=== PATIENT | male | born 1995 | race Hispanic/Latino ===

== ENCOUNTER 2022-05-14 05:29 | Emergency (ER) | payer MEDICAID ==
[~2022-05-14] VITALS: Ht 175.3 cm; Wt 59.0 kg
[2022-05-14] MEDS ORDERED: 0.9%NACL 1000ML 1,000 ML IV ONE ×2 (06:00→07:30)
[2022-05-14] MEDS ORDERED: ONDANSETRON 4MG INJ IVP ONE (06:00)
[2022-05-14] MEDS ORDERED: HALOPERIDOL INJ 5 MG/ML VIAL ONE (06:19)
[2022-05-14 06:26] LABS: BASOPHILS % (AUTO) 0.2 % (0.0-5.0); EOSINOPHILS % (AUTO) 0.1 % (0.0-8.0); HEMATOCRIT 47.7 % (42-54); LYMPHOCYTES % (AUTO) 16.2 % (21.0-51.0); MEAN CORPUSCULAR HEMOGLOBIN 30.4 pg (27.0-33.0); MEAN CORPUSCULAR HGB CONC 34.2 g/dL (32.0-36.0); MEAN CORPUSCULAR VOLUME 88.8 fL (79-99); MONOCYTES % (AUTO) 3.1 % (3.0-13.0); PLATELET COUNT (AUTO) 184 K/uL (130-400); RED BLOOD CELL COUNT(AUTO) 5.37 MIL/uL (4.50-6.20); RED CELL DISTRIBUTION WIDTH 13.1 % (11.0-15.5); WHITE BLOOD COUNT (AUTO) 14.9 K/uL (4.8-10.8)
[2022-05-14 06:28] LABS: CARBON DIOXIDE 26 mmol/L (21-32); CHLORIDE 105 mmol/L (101-111); CREATININE 0.9 mg/dL (0.5-1.5); GLOMERULAR FILTR. RATE CALC 121 mL/min (>90); GLUCOSE,RANDOM 99 mg/dL (70-105); SODIUM SERUM 143 mmol/L (136-145); UREA NITROGEN, BLOOD 14 mg/dL (7-18)
[2022-05-14 06:32] LABS: ALANINE AMINOTRANSFERASE 19 U/L (12-78); ALBUMIN 4.9 g/dL (3.5-5.0); ASPARTATE AMINOTRANSFERASE 22 U/L (10-37); CREATINE KINASE, TOTAL 332 U/L (21-232); LIPASE 566 U/L (114-286); TOTAL PROTEIN, SERUM 8.5 g/dL (6.0-8.3)
[2022-05-14 06:33] LABS: ACETAMINOPHEN < 1 mcg/mL (10-29); SALICYLATE < 2.8 mg/dL (2.8-20.0)
[2022-05-14] MEDS ORDERED: 0.9%NACL 1000ML 1,000 ML IV SCH (06:52)
[2022-05-14] MEDS ORDERED: HALOPERIDOL INJ 5 MG/ML VIAL IV SCH (06:53)
[2022-05-14 07:02] LABS: APPEARANCE,URINE CLEAR (CLEAR); BILIRUBIN,URINE NEGATIVE (NEGATIVE); COLOR,URINE LIGHT-YELLOW (YELLOW); GLUCOSE, URINE (UA) NEGATIVE (NEGATIVE); KETONES,URINE NEGATIVE (NEGATIVE); LEUKOCYTE ESTERASE ,URINE NEGATIVE Leu/uL (NEGATIVE); NITRATE,URINE NEGATIVE (NEGATIVE); OCCULT BLOOD,URINE NEGATIVE (NEGATIVE); PROTEIN,URINE NEGATIVE (NEGATIVE); UROBILINOGEN,URINE 0.2 mg/dL (0.2-1.0)
[2022-05-14 07:06] LABS: AMPHET/METH SCREEN,URINE NEGATIVE (NEGATIVE); BARBITURATE SCREEN, URINE NEGATIVE (NEGATIVE); BENZODIAZEPINES SCREEN,URINE POSITIVE (NEGATIVE); CANNABINOID SCREEN,URINE POSITIVE (NEGATIVE); COCAINE SCREEN,URINE NEGATIVE (NEGATIVE); OPIATE SCREEN,URINE NEGATIVE (NEGATIVE); PHENCYCLIDINE SCREEN,URINE NEGATIVE (NEGATIVE)
[2022-05-14] MEDS ORDERED: IOHEXOL 350 MG/ML 100ML INFUS..BTL IV ONE (07:09)
[2022-05-14 07:13] LABS: INR 1.15 (0.85-1.15); PROTHROMBIN TIME 12.4 SEC (9.6-11.6)
[2022-05-14 07:14] LABS: PARTIAL THROMBOPLASTIN TIME 26.2 SEC (26.3-35.5)
[2022-05-14] MEDS ORDERED: FAMO20TA8 PO (08:48)
[2022-05-14 08:56] VITALS: BP 117/67
== END 2022-05-14 09:00 | disposition home or self-care (01) ==
LOC: EDH 05:29
DX: R10.9 Unspecified abdominal pain (principal); K29.70 Gastritis, unspecified, without bleeding; F19.10 Other psychoactive substance abuse, uncomplicated; F41.9 Anxiety disorder, unspecified
CPT/HCPCS: 99285; 74177; 96374; 96361; 82550; 80053; 80305; 83690 ×2; 85025; 85610; 85730; 36415; 93005; 81003; G0481; J7030; J1630; J2405; Q9967

== ENCOUNTER 2023-06-06 00:30 | Emergency (ER) | payer MEDICAID ==
[~2023-06-06] VITALS: Ht 172.7 cm; Wt 61.2 kg
[~2023-06-06 00:30] MED LIST: FAMO20TA8 PO
[2023-06-06 01:02] LABS: BASOPHILS # (AUTO) 0.04 K/uL (0.00-0.20); BASOPHILS % (AUTO) 0.4 % (0.0-5.0); EOSINOPHILS # (AUTO) 0.11 K/uL (0.00-0.70); EOSINOPHILS % (AUTO) 1.1 % (0.0-8.0); HEMATOCRIT 39.6 % (42-54); IMMATURE GRANULOCYTE ABSOLUTE 0.03 K/uL (0-1); LYMPHOCYTES # (AUTO) 3.8 K/uL (1.0-4.8); LYMPHOCYTES % (AUTO) 37.1 % (21.0-51.0); MEAN CORPUSCULAR HGB CONC 35.4 g/dL (32.0-36.0); MEAN CORPUSCULAR VOLUME 87.8 fL (79-99); MONOCYTES # (AUTO) 0.8 K/uL (0.1-1.0); MONOCYTES % (AUTO) 7.5 % (3.0-13.0); NEUTROPHILS # (AUTO) 5.5 K/uL (1.8-7.7); NEUTROPHILS % (AUTO) 53.6 % (40.0-77.0); PLATELET COUNT (AUTO) 246 K/uL (130-400); RED BLOOD CELL COUNT(AUTO) 4.51 MIL/uL (4.50-6.20); RED CELL DISTRIBUTION WIDTH 13.8 % (11.0-15.5); WHITE BLOOD COUNT (AUTO) 10.2 K/uL (4.8-10.8)
[2023-06-06 01:10] LABS: CREATININE 0.9 mg/dL (0.5-1.3); POTASSIUM 3.6 mmol/L (3.5-5.1)
[2023-06-06 01:14] LABS: ALBUMIN 4.1 g/dL (3.5-5.0); BILIRUBIN,TOTAL 0.4 mg/dL (0.2-1.0); TOTAL PROTEIN, SERUM 7.6 g/dL (6.0-8.3)
[2023-06-06] MEDS ORDERED: IOHEXOL-350 50ML VIAL IV ONE (02:29)
[2023-06-06 04:26] VITALS: BP 121/77; PULSE 77; RESP 16; O2SAT 99
== END 2023-06-06 04:55 | disposition home or self-care (01) ==
LOC: EDH 00:30
DX: R51.9 Headache, unspecified (principal); K21.9 Gastro-esophageal reflux disease without esophagitis
CPT/HCPCS: 99285; 70470; 80053; 85025; 36415; Q9967

== ENCOUNTER 2024-10-18 13:49 | Emergency (ER) | payer BC, MEDICAID ==
[~2024-10-18] VITALS: Ht 167.6 cm; Wt 65.8 kg
--- NOTE | 2024-10-18 15:43 | HMCIMG ---
EXAM: CT Head Without IV contrast. CLINICAL HISTORY: left sided headache TECHNIQUE: Axial computed tomography images of the head/brain without intravenous contrast. COMPARISON: None provided. FINDINGS: BRAIN: No evidence of acute hemorrhage. No mass lesion. No CT evidence for acute territorial infarct. No midline shift or extra-axial collections. VENTRICLES: No hydrocephalus. ORBITS: The orbits are unremarkable. SINUSES AND MASTOIDS: The paranasal sinuses and mastoid air cells are clear. BONES: No fracture. SOFT TISSUES: Unremarkable. IMPRESSION: No acute intracranial abnormality. /[place]
--- NOTE | 2024-10-18 17:05 | ERN ---
ED Note History of Present Illness Stated Complaint: HEADACHE Chief Complaint: Headache Time Seen by MD: 14:15 Dictation: 29-year-old male presenting to the emergency department headache left-sided pain and vision changes on and off. Patient reports similar episodes over the past few years and has been worked up with negative workups. Allergies: Coded Allergies: No Known Drug Allergies (Unverified Allergy, Unknown, 05/14/22) Home Meds Active Scripts Famotidine (Famotidine) 20 Mg Tablet, 20 MG PO BID for 30 Days, #30 TAB Prov:CHRISS SALAS MD 05/14/22 Past Medical History Past Medical History: Other Additional Past Medical Hx: headaches, grastritis Surgical History: None Family History: Negative Social History: Drugs, ETOH, Lives with family Review of System Dictation Constitutional: Negative for fever,chills, and weight loss Eyes: Per HPI ENT: Negative for injury,pain or swelling Cardiovascular: Negative for chest pain, palpitations, and edema Respiratory: Negative for shortness of breath, cough, and wheezing, Abdomen/GI: Negative for abdominal pain, nausea, vomiting, diarrhea, and constipation Back: Negative for injury and pain : Negative for injury, bleeding and discharge MS/Extremity: Negative for injury and deformity Skin: Negative for rash, and discoloration Neuro: Per HPI Initial Vital Sign VS Vital Signs Date Time Temp Pulse Resp B/P (MAP) Pulse Ox O2 Delivery O2 Flow Rate FiO2 10/18/24 13:51 98.8 73 16 138/87 98 Room Air 0 10/18/24 13:54 21 Physical Exam Dictation General: awake, alert, NAD Head/Face: Normocephalic, atraumatic Eyes: PERRL, EOMI, vision at baseline ENT: oral cavity clear, TMs clear, no signs of infection Neck: Trachea midline, supple, no nuchal rigidity Cardiovascular: RRR, normal S1/S2, No MRGs, no JVD Respiratory: CTAB, no respiratory distress, No rales or wheezes Abdomen: Soft, non-tender, non-distended, normal bowel sounds, no guarding or rebound. Skin: Warm, dry, normal turgor, no rash MS/Extremity: Pulses equal, no cyanosis, neurovascular intact, FROM Neuro: COAx4, GCS 15, strength 5/5, CN 2-12 intact, normal cerebellar exam, normal gait, ED Course ED Course Orders Procedure Category Date Status Time Ct Head/Brain W/O CT 10/18/24 Resulted Contrast 14:33 Visual Acuity Test CPOE 10/18/24 Transmitted (Er) 14:34 Vital Signs Date Time Temp Pulse Resp B/P (MAP) Pulse Ox O2 Delivery O2 Flow Rate FiO2 10/18/24 15:43 98.8 70 18 121/85 98 Room Air* 0 10/18/24 13:54 98.8 73 16 138/87 98 Room Air* 0 10/18/24 13:51 98.8 73 16 138/87 98 Room Air 0 Medical Decision Making MDM MDM: Differential diagnosis: Rationale: Tests considered and ordered secondary to shared decision making include: Previous outside records reviewed: Old ER visits. Risk of complication and/or morbidity or mortality of patient management: None Medications-Per medication reconciliation Need for hospitalization: Patient does not meet criteria for hospitalization. Need for emergency major/minor surgery: No There are no social concerns with this patient. Prescription drug management Prescriptions will include symptomatic care Patient's prior external medical records from other ER visits were reviewed by me as indicated. Prior testing and results from previous visits were reviewed. Prior tests were taken into account with medical decision making and resource utilization, independent historian/historians were used to obtain complete medical history. I independently interpreted the test that were performed, results were reviewed by me and considered findings on radiology if ordered. Medical management and examination interpretation discussions were had by me with other qualified healthcare professionals as indicated for the patient's care. 29-year-old male with headache stable exam Neuro exam CT scan negative stable for discharge. DX & DISP Disposition: Discharge Departure Impression: Primary Impression: Chronic headache Condition: Stable Referrals: JOEL STRATTON MD (PCP) NADJA HINOJOSA MD Oct 18, 2024 17:05
[2024-10-18 17:25] VITALS: BP 118/85; PULSE 70; RESP 18; TEMP 98.8; O2SAT 98
== END 2024-10-18 17:29 | disposition home or self-care (01) ==
LOC: EDH 13:49
DX: R51.9 Headache, unspecified (principal)
CPT/HCPCS: 70450; 99284

== ENCOUNTER 2025-02-11 10:22 | Emergency (ER) | payer BC ==
[~2025-02-11] VITALS: Ht 167.6 cm; Wt 63.5 kg
--- NOTE | 2025-02-11 10:31 | ERN ---
ED Note History of Present Illness Stated Complaint: COUGH, CONGESTION, SOB Chief Complaint: Cough Time Seen by MD: 10:25 Dictation: PATIENT IS A 29-YEAR-OLD MALE COMING IN TODAY WITH FLU-LIKE SYMPTOMS TO INCLUDE SHORTNESS A BREATH THAT IS GETTING WORSE FOR THE LAST TWO WEEKS ON-CALL. NO FEVER NO CHILLS NO NAUSEA VOMITING. NO LOSS OF TASTE OR SMELL. HE STATES IT ALL OF HIS KIDS AT HOME WERE SICK WITH FLU HOWEVER HE DID NOT GO TO A DOCTOR IN HIS SELF DIAGNOSED SEEN. HE ALSO STATES I DRANK LAST NIGHT AND DID 20 DOLLARS WORTH OF COCAINE AND IT MIGHT HAVE MADE IT WORSE. HE DENIES CHEST PAIN. Allergies: Coded Allergies: No Known Drug Allergies (Unverified Allergy, Unknown, 05/14/22) Home Meds Active Scripts Benzonatate (Tessalon Perles) 100 Mg Cap, 200 MG PO TID for cough, #60 CAP 0 Refills Prov:HARLEY SMITH 02/11/25 Albuterol Sulfate (Ventolin Hfa/Proventil Hfa/Proair Hfa) 90 Mcg Puff, 2 PUFF IH Q4H for WHEEZING, #1 INHALER 0 Refills Prov:HARLEY SMITH 02/11/25 Azithromycin (Azithromycin) 250 Mg Tablet, 1 TAB PO AD for 5 Days, #6 TAB 0 Refills 2 the first day followed by 1 for days 2-5 Prov:HARLEY SMITHP 02/11/25 Famotidine (Famotidine) 20 Mg Tablet, 20 MG PO BID for 30 Days, #30 TAB Prov:CHRISS SALAS MD 05/14/22 Past Medical History Past Medical History: Other Additional Past Medical Hx: headaches, grastritis Surgical History: None Family History: Negative Social History: Drugs, ETOH, Lives with family RN Note Reviewed/Agreed w/PFSH: Yes Review of System Dictation CONSTITUTIONAL: NEGATIVE EXCEPT FOR HPI HEAD/FACE: NEGATIVE EXCEPT FOR HPI EENT: NEGATIVE EXCEPT FOR HPI RESPIRATORY: NEGATIVE EXCEPT FOR HPI SHORTNESS A BREATH GASTROINTESTINAL/ABDOMINAL: NEGATIVE EXCEPT FOR HPI GENITOURINARY: NEGATIVE EXCEPT FOR HPI MUSCULOSKELETAL: NEGATIVE EXCEPT FOR HPI INTEGUMENTARY: NEGATIVE EXCEPT FOR HPI NEUROLOGICAL/PSYCH: NEGATIVE EXCEPT FOR HPI HEMATOLOGIC/LYMPHATIC: NEGATIVE EXCEPT FOR HPI ALL SYSTEMS NEGATIVE, EXCEPT NOTED ABOVE. 13 POINT REVIEW OF SYSTEMS ASSESSED AND ALL NEGATIVE EXCEPT FOR ABOVE. Initial Vital Sign VS Vital Signs Date Time Temp Pulse Resp B/P (MAP) Pulse Ox O2 Delivery O2 Flow Rate FiO2 02/11/25 10:23 99.1 96 16 143/87 98 Room Air 0 02/11/25 11:37 21 Physical Exam Dictation VITAL SIGNS REVIEWED GENERAL APPEARANCE: ALERT, ORIENTED X 3, NO ACUTE DISTRESS, WELL DEVELOPED, NOURISHED. HEAD AND FACE: NON-TRAUMATIC. EYES: PERRL, PINK CONJUNCTIVAS, EYELID NO TRAUMA, ANTERIOR CHAMBER WITH ARCUS SENILIS. EARS: PINNAS INTACT AND NO SIGNS OF TRAUMA OR ERYTHEMA EAR CANALS CLEAR AND NO DISCHARGE TM NO ERYTHEMA NOSE: NO DISCHARGE, NO BLEEDING. OROPHARYNX: MOUTH NORMAL, TONGUE PINK, PHARYNX CLEAR,NO ERYTHEMA, TONSILS NO EXUDATES, NO ABSCESSES NOTED, MUCOUS MEMBRANE MOIST NECK: SUPPLE, NON-TENDER, NO THYROMEGALY, NO MASSES, NO JVD, NO BRUITS BREAST:DEFERRED CHEST:NO TENDERNESS, NO CREPITUS, NO PARADOXICAL MOVEMENT, NO RETRACTIONS LUNGS:CLEAR, WELL-VENTILATED, SYMMETRIC, NO RALES, NO WHEEZING, NO RHONCHI, NO STRIDOR, GOOD BREATH SOUNDS BILATERALLY BILATERAL BREATH SOUNDS CLEAR TO AUSCULTATION NO TACHYPNEA NO RETRACTIONS HEART: REGULAR RATE, REGULAR RHYTHM, NO MURMUR, NO GALLOPS VASCULAR: NO PERIPHERAL EDEMA, ABDOMEN: SOFT, POSITIVE BOWEL SOUNDS, NONDISTENDED, NO GUARDING, NONTENDER, NO REBOUND, NO MASSES NO HEPATOMEGALY, NO SPLENOMEGALY, NO MCELROY'S SIGN, NO HERNIAS. RECTAL: DEFERRED GENITAL: DEFERRED NEUROLOGICAL: NORMAL SPEECH, MOTOR FUNCTION INTACT, SENSORY FUNCTION INTACT MUSCULOSKELETAL: NECK NONTENDER, FULL RANGE OF MOTION, BACK NONTENDER, FULL RANGE OF MOTION, EXTREMITIES: NONTENDER, FULL RANGE OF MOTION SKIN: COLOR PINK, DRY, NO TURGOR, NO RASH, NO LACERATIONS, NO ABRASIONS, NO CONTUSIONS. LYMPHATIC: DEFERRED Results (Laboratory/Radiology) Laboratory/Radiology Laboratory Tests Test 02/11/25 10:07 02/11/25 11:09 Influenza Type A Antigen Negative For Type A Influenza Type B Antigen Negative For Type B SARS-CoV-2 Antigen (Rapid) PRESUMPTIVE NEGATIVE White Blood Count 14.8 K/uL (4.8-10.8) H Red Blood Count 4.55 MIL/uL (4.50-6.20) Hemoglobin 13.7 g/dL (14.0-18.0) L Hematocrit 39.7 % (42-54) L Mean Corpuscular Volume 87.3 fL (79-99) Mean Corpuscular Hemoglobin 30.1 pg (27.0-33.0) Mean Corpuscular Hemoglobin Concent 34.5 g/dL (32.0-36.0) Red Cell Distribution Width 13.1 % (11.0-15.5) Platelet Count 342 K/uL (130-400) Mean Platelet Volume 9.9 fL (7.5-10.5) Immature Granulocyte % (Auto) 0.4 % (0-1) Neutrophils (%) (Auto) 80.9 % (40.0-77.0) H Lymphocytes (%) (Auto) 11.2 % (21.0-51.0) L Monocytes (%) (Auto) 7.4 % (3.0-13.0) Eosinophils (%) (Auto) 0.0 % (0.0-8.0) Basophils (%) (Auto) 0.1 % (0.0-5.0) Neutrophils # (Auto) 11.9 K/uL (1.8-7.7) H Lymphocytes # (Auto) 1.7 K/uL (1.0-4.8) Monocytes # (Auto) 1.1 K/uL (0.1-1.0) H Eosinophils # (Auto) 0.00 K/uL (0.00-0.70) Basophils # (Auto) 0.02 K/uL (0.00-0.20) Absolute Immature Granulocyte (auto 0.06 K/uL (0-1) Nucleated Red Blood Cells 0.0 % (0.0-0.19) Sodium Level 138 mmol/L (136-145) Potassium Level 3.8 mmol/L (3.5-5.1) Chloride Level 100 mmol/L (101-111) L Carbon Dioxide Level 26 mmol/L (21-32) Blood Urea Nitrogen 9 mg/dL (7-18) Creatinine 0.7 mg/dL (0.5-1.3) Glomerular Filtration Rate Calc 128 mL/min (>90) Random Glucose 109 mg/dL (70-105) H Total Calcium 9.2 mg/dL (8.5-10.1) Troponin I High Sensitivity 5 ng/L (4-75) 1125/CHEST X-RAY NEGATIVE Labs Reviewed?: Yes EKG: (+) NSR EKG Comment: 1037/EKG NORMAL SINUS RHYTHM/HEART RATE 81/AXIS NORMAL/NO ECTOPY ED Course ED Course Orders Procedure Category Date Status Time Covid19 (Sars Antigen LAB 02/11/25 Complete Rapid) 10:28 Chest 1vw RAD 02/11/25 Resulted 10:28 12 Lead Ekg Tracing- EKG 02/11/25 Complete Technical 10:28 Influenza Type A & B, LAB 02/11/25 Complete Rapid 10:28 Cbc With Differential LAB 02/11/25 Complete 10:31 Troponin I High LAB 02/11/25 Complete Sensitivity 10:31 Basic Metabolic Panel LAB 02/11/25 Complete 10:31 Vital Signs Date Time Temp Pulse Resp B/P (MAP) Pulse Ox O2 Delivery O2 Flow Rate FiO2 02/11/25 11:37 98.8 92 16 132/78 98 Room Air* 0 21 02/11/25 10:23 99.1 96 16 143/87 98 Room Air 0 1220/CARDIAC WORKUP NEGATIVE EKG NORMAL. PATIENT WILL BE DIAGNOSED WITH A ACUTE BACTERIAL BRONCHITIS PRESCRIBED AZITHROMYCIN AND ALBUTEROL. PATIENT WAS STRONGLY ADVISED TO STOP USING COCAINE OR RISK HEART ATTACK, STROKE OR INSTANT HE WAS MADE AWARE THAT COCAINE IS BEING MIXED WITH FENTANYL AND WILL KILL YOU HEART Score Response (Comments) Value History: Low suspicion (0) 0 EKG: Normal 0 Age: < 45yrs (0) 0 Risk Factors: No known risk factors (0) 0 Initial Troponin: Normal limit (0) 0 Total 0 Medical Decision Making MDM MDM: DIFFERENTIAL DIAGNOSIS: PNEUMONIA/BRONCHITIS/SARS COVID/FLU/ELECTROLYTE IMBALANCE/DEHYDRATION/DRUG ABUSE/ACS/AMI RATIONALE: TESTS CONSIDERED AND ORDERED SECONDARY TO SHARED DECISION MAKING INCLUDE: EKG/LABS/RADIOLOGY PREVIOUS OUTSIDE RECORDS REVIEWED: OLD ER VISITS. RISK OF COMPLICATION AND/OR MORBIDITY OR MORTALITY OF PATIENT MANAGEMENT: NONE MEDICATIONS-PER MEDICATION RECONCILIATION NEED FOR HOSPITALIZATION: PATIENT DOES NOT MEET CRITERIA FOR HOSPITALIZATION. NONE NEED FOR EMERGENCY MAJOR/MINOR SURGERY: NO THERE ARE NO SOCIAL CONCERNS WITH THIS PATIENT. PRESCRIPTION DRUG MANAGEMENT Z-AUGUSTIN/ALBUTEROL/TESSALON PRESCRIPTIONS WILL INCLUDE SYMPTOMATIC CARE PATIENT'S PRIOR EXTERNAL MEDICAL RECORDS FROM OTHER ER VISITS WERE REVIEWED BY ME INDICATED. PRIOR TESTING AND RESULTS FROM PREVIOUS VISITS WERE REVIEWED. PRIOR TESTS WERE TAKEN INTO ACCOUNT WITH MEDICAL DECISION MAKING AND RESOURCE UTILIZATION, INDEPENDENT HISTORIAN/HISTORIANS WERE USED TO OBTAIN COMPLETE MEDICAL HISTORY. I INDEPENDENTLY INTERPRETED THE TEST THAT WERE PERFORMED, RESULTS WERE REVIEWED BY ME AND CONSIDERED FINDINGS ON RADIOLOGY IF ORDERED. MEDICAL MANAGEMENT AND EXAMINATION INTERPRETATION DISCUSSIONS WERE HAD BY ME WITH OTHER QUALIFIED HEALTHCARE PROFESSIONALS INDICATED FOR THE PATIENT'S CARE. DX & DISP Disposition: Discharge Departure Impression: Primary Impression: Acute bacterial bronchitis Additional Impressions: Cough, Cocaine abuse Condition: Stable Scripts Benzonatate (Tessalon Perles) 100 Mg Cap 200 MG PO TID for cough, #60 CAP 0 Refills Prov: HARLEY SMITH WINDING LATHE OPERATOR 02/11/25 Albuterol Sulfate (Ventolin Hfa/Proventil Hfa/Proair Hfa) 90 Mcg Puff 2 PUFF IH Q4H for WHEEZING, #1 INHALER 0 Refills Prov: HARLEY SMITH WINDING LATHE OPERATOR 02/11/25 Azithromycin (Azithromycin) 250 Mg Tablet 1 TAB PO AD for 5 Days, #6 TAB 0 Refills 2 the first day followed by 1 for days 2-5 Prov: HARLEY SMITH WINDING LATHE OPERATOR 02/11/25 Additional Instructions: FOLLOW-UP WITH PRIMARY CARE PROVIDER IN 1 TO 2 DAYS. TAKE MEDICATIONS DIRECTED HERE IN THE EMERGENCY ROOM. OKAY TO CONTINUE HOME MEDICATIONS UNLESS OTHERWISE DISCUSSED DURING YOUR VISIT IN THE EMERGENCY ROOM TODAY. RETURN TO YOUR NEAREST EMERGENCY ROOM IF SYMPTOMS WORSEN OR IF THERE IS NO IMPROVEMENT. CALL 911 IF YOU NEED IMMEDIATE ASSISTANCE. TAKE TYLENOL OR MOTRIN [id number] NEEDED AND IF NO CONTRAINDICATIONS ARE PRESENT. INCREASE ORAL HYDRATION. A WOUND CULTURE OR URINE CULTURE WAS ORDERED HERE IN THE EMERGENCY ROOM DEPARTMENT PLEASE FOLLOW-UP WITH PRIMARY CARE PROVIDER AND ADVISE THEM TO GET REPEAT PORTS FROM OUR FACILITY. IF YOU HAD ANY TED WRAP/SPLINTS THAT WERE APPLIED HERE, PLEASE DO NOT REMOVE THEM UNTIL YOU SEE YOUR PRIMARY CARE OR SPECIALTY. TAKE AZITHROMYCIN DIRECTED UNTIL GONE. USE ALBUTEROL INHALER EVERY 4 HOURS WHILE AWAKE FOR THE NEXT TWO DAYS. TAKE TESSALON NEEDED FOR YOUR COUGH AND INCREASE YOUR FLUID INTAKE. STOP USING COCAINE OR RISK HEART ATTACK, STROKE OR INSTANT . COCAINE IS BEING MIXED WITH FENTANYL AND WILL KILL YOU. Referrals: JOEL STRATTON MD (PCP) Time of Disposition: 12:21 I have reviewed the case, and I agree with, Diagnosis and Plan I performed a substantive portion of the visit. I have reviewed and personally made and approve the management plan that is documented in the notes by myself with BRIANNE/resident. I acknowledged full responsibility for the patient's management plan. HARLEY SMITHP Feb 11, 2025 10:31 ANDRES FIGUEROA DO Feb 11, 2025 15:47
--- NOTE | 2025-02-11 10:42 | EKG ---
[facility] Test Date: 2025-02-11 Test Time: 10:30:20 Pat Name: CONNIE TODD Department: ED Room: Gender: Tubing Drier: [id number] : 1995 Requested By: HARLEY SMITH Order Number: [id number] Reading MD: Loy Christy Measurements Intervals [place] Rate: 81 P: 8 WA: 146 QRS: 70 QRSD: 102 T: 55 QT: 374 QTc: 434 Interpretive Statements Sinus rhythm Compared to ECG 05/14/2022 06:15:57 ST (T wave) deviation no longer present Electronically Signed On 02-11-2025 19:08:32 CORRECTIONAL PROBATION OFFICER by Loy Christy Please click the below link to view image of tracing.
[2025-02-11 11:19] LABS: COVID19 (SARS ANTIGEN RAPID) PRESUMPTIVE NEGATIVE (NEGATIVE); INFLUENZA TYPE A Negative For Type A (NEGATIVE); INFLUENZA TYPE B Negative For Type B (NEGATIVE)
[2025-02-11 11:37] VITALS: BP 132/78; PULSE 92; RESP 16; TEMP 98.8; O2SAT 98
[2025-02-11 11:42] LABS: PLATELET COUNT (AUTO) 342 K/uL (130-400); RED BLOOD CELL COUNT(AUTO) 4.55 MIL/uL (4.50-6.20); RED CELL DISTRIBUTION WIDTH 13.1 % (11.0-15.5); WHITE BLOOD COUNT (AUTO) 14.8 K/uL (4.8-10.8)
[2025-02-11 11:43] LABS: IMMATURE GRANULOCYTE ABSOLUTE 0.06 K/uL (0-1); NUCLEATED RED BLOOD CELLS 0.0 % (0.0-0.19)
[2025-02-11 12:10] LABS: CREATININE 0.7 mg/dL (0.5-1.3); GLOMERULAR FILTR. RATE CALC 128.0 mL/min (>90); GLUCOSE,RANDOM 109.0 mg/dL (70-105); SODIUM SERUM 138.0 mmol/L (136-145); UREA NITROGEN, BLOOD 9.0 mg/dL (7-18)
[2025-02-11] MEDS ORDERED: ALBUHFA IH (12:21)
[2025-02-11] MEDS ORDERED: AZIT250T9 PO (12:21)
[2025-02-11] MEDS ORDERED: BENZ-39 PO (12:21)
--- NOTE | 2025-02-11 12:33 | HMCIMG ---
EXAM: CR Chest, 1 View. CLINICAL HISTORY: SOB COMPARISON: None provided. FINDINGS: LUNGS: The lungs show no infiltrate or other acute finding. PLEURAL SPACES: No pleural effusion or pneumothorax. MEDIASTINUM: The cardiomediastinal silhouette is within normal limits. BONES: No acute osseous abnormality. IMPRESSION: No acute cardiopulmonary pathology is evident. /[place]
== END 2025-02-11 12:45 | disposition home or self-care (01) ==
LOC: EDH 10:22
DX: J20.8 Acute bronchitis due to other specified organisms (principal); B96.89 Other specified bacterial agents as the cause of diseases classified elsewhere; F14.10 Cocaine abuse, uncomplicated; R05.9 Cough, unspecified; Z20.822 Contact with and (suspected) exposure to COVID-19
CPT/HCPCS: 36415; 71045; 80048; 84484; 85025; 87426; 87804; 93005; 99284